=== PATIENT | male | born 2000 | race Hispanic/Latino ===

== ENCOUNTER 2019-05-02 14:30 | Outpatient (AMBR) | payer MEDICAID, SELFPAY ==
--- NOTE | 2019-04-18 09:39 | PT.ODAYNRPT ---
PT Outpatient Daily Note Date of Service: April 18, 2019 OP Daily Note Visit Reasons: knee pain Outpatient Physical Therapy Treatment Date: 04/18/19 Subjective: pt came in and was ready to get started. he stated the TM exercise is difficult but good challenge for him. Objective: see flow sheet. Assessment: pt takes his exercises serious because if he messes up he restarts the rep without being corrected. he is focused and concentrates well. he maintains good posture throughout. he fatigues but drinks water and gets back to it. pt doing really well. he had no concerns pos ther ex. Plan: continue POC per PT. Length of Time (minutes) of Treatment: 30 Minutes Office Procedures PT Procedures PT Date of Service: 04/18/19 Therapeutic Exercise 30 minutes: Yes
--- NOTE | 2019-04-23 16:54 | PTNOTE_ITS ---
PT Outpatient Daily Note Date of Service: April 23, 2019 OP Daily Note Visit Reasons: knee pain Outpatient Physical Therapy Treatment Date: 04/23/19 Subjective: pt stated he did not do much this past weekend. Objective: see flow sheet. Assessment: pt seemed more fatigued during the 3rd exercise. pt demonstrated dif ficulty with endurance due to cardio exercises. noted a lot more muscle fatigue during TG squats. pt did have a different routine today which was cardio exercises 1st followed by strengthening exercises in which did effect him. pt demonstrates improved balance with foam pad exercises with decreased LOB. Plan: continue POC per PT. Length of Time (minutes) of Treatment: 30 Minutes Office Procedures PT Procedures PT Date of Service: 04/18/19 Therapeutic Exercise 30 minutes: Yes PT Procedures PT Date of Service: 04/23/19 Therapeutic Exercise 30 minutes: Yes
--- NOTE | 2019-04-25 16:11 | PT.ODAYNRPT ---
PT Outpatient Daily Note Date of Service: April 25, 2019 OP Daily Note Visit Reasons: knee pain Outpatient Physical Therapy Treatment Date: 04/25/19 Subjective: pt comes in straight to bike with no complaints. he is determined to get strong and improve endurance. Objective: see flow sheet. Assessment: added new exercises that focus on single leg lunges using the stair case. gave him barbells on both hands to assist with upright posture. he demonstrates good posture with no compensation. pt overall was able to perform new and all exercises well. he does get tired but he is committed. weights were light. noted good stability of the knee and good ROM. Plan: continue POC per PT.s Length of Time (minutes) of Treatment: 30 Minutes Office Procedures PT Procedures PT Date of Service: 04/25/19 Therapeutic Exercise 30 minutes: Yes PT Procedures PT Date of Service: 04/18/19 Therapeutic Exercise 30 minutes: Yes PT Procedures PT Date of Service: 04/23/19 Therapeutic Exercise 30 minutes: Yes
--- NOTE | 2019-05-02 15:09 | PT.ODAYNRPT ---
PT Outpatient Daily Note Date of Service: May 02, 2019 OP Daily Note Visit Reasons: knee pain Outpatient Physical Therapy Treatment Date: 05/02/19 Subjective: Pt's knee feels good. Pt does not have pain and will like to continue balance + hip exercises Objective: Please see flow chart for list of ther ex performed Assessment: tolerate exercises with minimal pain Plan: Continue with PT Length of Time (minutes) of Treatment: 30 Minutes Office Procedures PT Procedures PT Date of Service: 04/25/19 Therapeutic Exercise 30 minutes: Yes PT Procedures PT Date of Service: 04/18/19 Therapeutic Exercise 30 minutes: Yes PT Procedures PT Date of Service: 04/23/19 Therapeutic Exercise 30 minutes: Yes PT Procedures PT Date of Service: 05/02/19 Therapeutic Exercise 30 minutes: Yes
== END 2019-05-11 23:59 | disposition home or self-care (01) ==
PROVIDERS: Visit Provider Orthopaedic Surgery
DX: M25.561 Pain in right knee (principal); M17.11 Unilateral primary osteoarthritis, right knee; M23.91 Unspecified internal derangement of right knee; M65.9 Synovitis and tenosynovitis, unspecified; Z98.890 Other specified postprocedural states
CPT/HCPCS: 97110